=== PATIENT | female | born 1935 | race Caucasian/White ===

== ENCOUNTER → 2017-11-22 | Outpatient (CLI) | payer MEDICARE, OTHER ==
[~2017-11-22] MED LIST: AMLO-96 PO; ASPI-1471 PO; DOCU-416 PO; DOCU100C49 PO; IBUP200C71 PO; LOSA-44 PO; MULT-1102 PO; MULT-27 PO; OMEG500C5 PO; OXYC-373 PO; PRAV20TA65 PO; PSYL0.5235 PO
--- NOTE | 2017-11-22 15:01 | RADIOLOGY IMAGING REPORT ---
FACILITY: [facility] [place] PATIENT NAME: ANDREW HANEY : [id number] MR: [id number] V: [id number] EXAM DATE: [id number] ORDERING PHYSICIAN: DANIEL ESPINOZA TECHNOLOGIST: Ammy Covington PROCEDURE:BILATERAL DIAGNOSTIC DIGITAL MAMMOGRAM WITH CAD ASSISTED INTERPRETATION & 3D TOMOSYNTHESIS Views obtained: Bilateral 2D full field CC & MLO, and corresponding 3D Tomography. COMPARISON:Bilateral Diagnostic Mammogram 10/02/2016, Left breast Mammogram 03/21/2016, 09/05/2015, and Bilateral Diagnostic Mammogram 08/26/2015. INDICATIONS:HX BREAST CA LESS THAN 2 YEARS History: Personal history of Left breast carcinoma, post lumpectomy and radiation therapy. TISSUE DENSITY: Heterogeneously dense, which may obscure small masses. FINDINGS: Stable Left medial breast post lumpectomy change and skin thickening. Right breast has no dominant mass or suspicious calcifications. DIAGNOSTIC CATEGORY 2-BENIGN FINDING. RECOMMENDATIONS: ANNUAL BILATERAL SCREENING MAMMOGRAM. IMPRESSION: BIRADS 2: Benign finding Dictated by: Marianne Norman M.D. on 11/22/2017 at 14:39 Transcribed by: YANNI on 11/22/2017 at 14:50 Approved by: Marianne Norman M.D. on 11/22/2017 at 15:00 [facility]
== END ==
LOC: MAMO 13:39
PROVIDERS: ATTEND Radiology Radiation Oncology
DX: C50.912 Malignant neoplasm of unspecified site of left female breast (principal); Z98.890 Other specified postprocedural states
CPT/HCPCS: 77062; 77066

== ENCOUNTER 2017-11-27 13:47 | Outpatient (RCR) | payer MEDICARE, OTHER ==
[2017-11-27 13:57] VITALS: BP 150/72
[2017-11-27] MEDS ORDERED: METO-233 PO (14:03)
[2017-11-27] MEDS ORDERED: OLM20 PO (14:03)
[2017-11-27] MEDS ORDERED: FOLI0.4T56 PO (14:03)
[2017-11-27] MEDS ORDERED: CALC625T57 PO (14:03)
--- NOTE | 2017-11-27 20:39 | ONCOLOGY FOLLOW UP NOTE ---
EVENT DATE: November 27, 2017 CHIEF COMPLAINT/REASON FOR VISIT Ms. Key is a very pleasant 82-year-old female with a left breast adenocarcinoma with atypical features, 1.3 cm in the medial upper quadrant of the left breast, sentinel lymph node negative. This was grade 3 with metaplastic features. Triple negative status. Status post lumpectomy. Stage I (T1c N0 M0). HISTORY OF PRESENT ILLNESS Kenia returns. It has been over two years since her diagnosis and she is doing well. She was not a candidate for any adjuvant therapy due to the triple negative status and decision not to pursue chemotherapy. No roll of hormonal therapy in the triple negative setting. Thankfully her lymph nodes were negative and she has had no symptoms of concern. No fevers, chills, night sweats, weight loss or other concerning findings. ALLERGIES FLONASE. HISTORY OF PRESENT ILLNESS 1. Coronary artery disease. 2. Hypertension. 3. Osteoarthritis. 4. TIA. 5. [place] in November 2013 followed by a subsequent coronary artery bypass graft in [place]. 6. Stage I triple negative breast cancer, 2015. SOCIAL HISTORY Patient is , has presented by herself today. I was previously involved with her 's care for prostate cancer any years ago. They have one son. Nonsmoker. FAMILY HISTORY Negative. REVIEW OF SYSTEMS CONSTITUTIONAL: No fevers, chills, night sweats, weight change. HEENT: No headache or vision changes. CARDIOVASCULAR: No chest pain, dyspnea on exertion or edema. RESPIRATORY: No shortness of breath, wheeze, cough. GASTROINTESTINAL: No nausea, vomiting. GENITOURINARY: No dysuria or hematuria. MUSCULOSKELETAL: No weakness or joint pain. PSYCHIATRIC: No anxiety or depression. SKIN: No concerning rashes or lesions. The remainder of the 14-point review of systems is otherwise negative. PHYSICAL EXAMINATION VITAL SIGNS: Blood pressure 150/72, pulse 84, respiratory rate 16, temperature 97.2 Fahrenheit, oxygen saturation 92% on room air. Weight 60.1 kg. Pain 0/10 , fatigue 0/10. GENERAL: In stable condition, resting comfortably in the chair. HEENT: Normocephalic, atraumatic. CARDIOVASCULAR: Regular rate and rhythm. LUNGS: Clear. ABDOMEN: Soft, nontender. BREASTS: Her surgical scar in the upper quadrant of the left breast looks well. She has minimal hypersensitivity in that area. Axillary exam negative. She also has some scar tissue that I palpate, but no abnormalities concerning for recurrence. LYMPHATIC: Remainder of lymphatic exam also negative. Remainder of physical exam otherwise negative. IMPRESSION AND PLAN Mrs. Kenia Key is a very pleasant 82-year-old female with stage I triple negative left-sided breast cancer. She had surgery followed by radiation therapy under the care of Dr. Guerra. No adjuvant chemotherapy or hormonal therapy. She remains without evidence of disease. We would like to see her every year at this point as we are beyond the two year period. Her risk of relapse is low, but not zero. I answered all of her questions today. She had labs recently with her primary care provider one month go and they looked well by report. I reviewed her mammogram as well from last week which is a BI-RADS level 2 and will be repeated in one year. I answered all of her questions today. RACHEL
== END 2017-12-19 14:12 | disposition home or self-care (01) ==
LOC: ONC 13:47
PROVIDERS: ATTEND Internal Medicine
DX: Z85.3 Personal history of malignant neoplasm of breast (principal)
CPT/HCPCS: 99212

== ENCOUNTER → 2019-01-12 | Outpatient (CLI) | payer MEDICARE, OTHER ==
[~2019-01-12] MED LIST changes: +AMLO-125 PO; -AMLO-96 PO; +CALC625T57 PO; +FOLI0.4T56 PO; +IBUP-136 PO; -IBUP200C71 PO; +METO-233 PO; -MULT-1102 PO; +MULT-1160 PO; +OLM20 PO
--- NOTE | 2019-01-12 14:20 | RADIOLOGY IMAGING REPORT ---
[facility] PATIENT NAME: ANDREW HANEY : [id number] MR: [id number] V: [id number] EXAM DATE: [id number] ORDERING PHYSICIAN: DANIEL ESPINOZA TECHNOLOGIST: Ammy Covington PROCEDURE: BILATERAL DIGITAL SCREENING MAMMOGRAM WITH CAD ASSISTED INTERPRETATION & 3D TOMOSYNTHESIS. REASON FOR STUDY: Screening. BREAST PROCEDURES/TREATMENTS: Left lumpectomy radiation therapy. COMPARISON: Mammograms dating back to 2015. VIEWS OBTAINED: 2D & 3D full field CC & MLO projections. BREAST DENSITY: Scattered fibroglandular densities. MAMMOGRAM FINDINGS: There are stable lumpectomy changes medial Left breast and stable skin thickening on the Left. No new masses on the Left, vascular calcifications are stable. The Right breast is stable. No dominant mass, suspicious cluster of microcalcification or persistent areas of architectural distortion. Lymph node in the upper outer quadrant is stable dating back to 2016. IMPRESSION: BIRADS 2: Benign finding. DIAGNOSTIC CATEGORY 2--BENIGN FINDING. RECOMMENDATIONS: ROUTINE MAMMOGRAM AND CLINICAL EVALUATION. Dictated by: Don Alonzo M.D. on 01/12/2019 at 13:03 Transcribed by: YANNI on 01/12/2019 at 14:01 Approved by: Don Alonzo M.D. on 01/12/2019 at 14:17 [facility]
== END ==
LOC: MAMO 01:03
PROVIDERS: ATTEND Radiology Radiation Oncology
DX: Z12.31 Encounter for screening mammogram for malignant neoplasm of breast (principal)
CPT/HCPCS: 77063; 77067